=== PATIENT | male | born 1995 | race Caucasian/White ===

== ENCOUNTER 2017-02-27 03:34 | Emergency (ER) | payer OTHER ==
[~2017-02-27] VITALS: Ht 175.3 cm; Wt 68.0 kg
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
== END 2017-02-27 09:21 | disposition home or self-care (01) ==
LOC: CED 03:34
DX: S02.2XXA Fracture of nasal bones, initial encounter for closed fracture (principal); S93.409A Sprain of unspecified ligament of unspecified ankle, initial encounter; F17.200 Nicotine dependence, unspecified, uncomplicated; W22.8XXA Striking against or struck by other objects, initial encounter; Y92.009 Unspecified place in unspecified non-institutional (private) residence as the place of occurrence of the external cause
CPT/HCPCS: 29540; 70150; 70450; 73610; 99284